=== PATIENT | male | born 1990 | race Two or more races ===

== ENCOUNTER 2025-05-22 22:12 | Emergency (ER) | payer MEDICAID, SELFPAY ==
[2025-05-22 22:14] VITALS: BP 140/85; PULSE 87; RESP 18; TEMP 36.8; O2SAT 96
[2025-05-22 22:19] VITALS: PULSE 79; RESP 15; O2SAT 100
[2025-05-22 22:24] VITALS: BMI 27.3
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
[2025-05-22] MEDS: HYDROcodone/APAP 5/325 TABLET 1 TAB PO (23:50)
[2025-05-22 23:58] VITALS: BP 162/93; PULSE 74; RESP 17; TEMP 36.9; O2SAT 97
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
[2025-05-23 03:00] VITALS: BP 162/82; PULSE 83; RESP 16; TEMP 36.8; O2SAT 97
[2025-05-23] MEDS: LIDOCAINE VISCOUS 2% 15 ML UDC PO (04:21)
== END 2025-05-23 06:18 | disposition home or self-care (01) ==
PROVIDERS: Emergency Provider Emergency Medicine
DX: S82.831A Other fracture of upper and lower end of right fibula, initial encounter for closed fracture (principal); F12.90 Cannabis use, unspecified, uncomplicated; V03.10XA Pedestrian on foot injured in collision with car, pick-up truck or van in traffic accident, initial encounter
CPT/HCPCS: 73590; 99283; J3490; A9270

== ENCOUNTER 2025-05-26 12:31 | Emergency (ER) | payer MEDICAID, SELFPAY ==
[2025-05-26 12:41] VITALS: BP 179/81; PULSE 78; RESP 18; TEMP 36.6; O2SAT 97; BMI 27.3
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
== END 2025-05-26 13:28 | disposition home or self-care (01) ==
LOC: SERX 13:51
PROVIDERS: Emergency Provider Emergency Medicine
DX: S82.831A Other fracture of upper and lower end of right fibula, initial encounter for closed fracture (principal); X58.XXXA Exposure to other specified factors, initial encounter
CPT/HCPCS: 99281